=== PATIENT | male | born 1970 | race Caucasian/White ===

== ENCOUNTER 2016-05-14 09:58 | Inpatient (IN) | payer OTHER ==
[~2016-05-14] VITALS: Ht 198.1 cm; Wt 214.0 kg
[~2016-05-14 09:58] MED LIST: CARVEDILOL25 MG PO; CATAPRES0.3 MG PO; CITALOPRAM HBR20 MG PO; CLONIDINE HCL0.3 MG PO; COMBIVENT RESPIM4 GM IH; Catapres PO; DUONEB 2.5-0.5 M3 ML IH; DUONEB 2.5-0.5 M3 ML IPPB; DuoNeb IH; FUROSEMIDE20 MG PO; Glucophage PO; KLOR-CON M2020 MEQ PO; LASIX40 MG PO; LISINOPRIL2.5 MG PO; Lasix PO; Levaquin PO; Micro-K,K-Tab,K-Dur, PO; TRADJENTA5 MG PO; VERAPAMIL HCL120 MG PO; Zestril,Prinivil PO; predniSONE PO
[2016-05-14] MEDS ORDERED: VALIUM5 MG PO (14:25)
[2016-05-14] MEDS ORDERED: PERCOCET 5/31 TABLET PO (14:25)
[2016-05-14 16:36] LABS: ADD MIUA? NO; BILIRUBIN NEGATIVE; BLOOD NEGATIVE; COLOR YELLOW ((YELLOW)); GLUCOSE (STRIP) NEGATIVE; KETONES NEGATIVE; LEUKOCYTES NEGATIVE; NITRITE NEGATIVE; PH, URINE 6.5 (5-8); PROTEIN (STRIP) TRACE; SPECIFIC GRAVITY 1.023 (1.000-1.030); UCUL ADDED? NO; UROBILINOGEN 0.2 MG/DL (0.2-1.0)
[2016-05-14] MEDS ORDERED: LASIX40 MG PO (18:55)
[2016-05-14] MEDS ORDERED: LISINOPRIL2.5 MG PO (18:56)
[2016-05-14] MEDS ORDERED: COMBIVENT RESPIM4 GM IH (18:57)
[2016-05-14] MEDS ORDERED: BUSPAR10 MG PO (18:58)
[2016-05-14 20:32] LABS: HEMATOCRIT 48.9 % (38.0-50.0); MCH 24.4 PG (29.0-34.0); MCHC 31.5 G/DL (30.0-36.0); MCV 77.6 FL (86-99); MEAN PLAT.VOLUME 9.2 uM^3 (9.0-12.4); PLATELET COUNT 255 K/uL (156-360); RBC DIS.WIDTH-CV 18.6 % (11.8-14.6); RBC DIS.WIDTH-SD 48.8 % (39-53); WHITE BLOOD COUNT 15.9 K/uL (4.1-10.2)
[2016-05-14 20:40] LABS: CHLORIDE 100 mEq/L (99-109); POTASSIUM 4.6 mEq/L (3.7-5.4); SODIUM 138 mEq/L (136-147)
[2016-05-14 20:42] LABS: GLUCOSE 145 mg/dL (70-99)
[2016-05-14 20:43] LABS: ANION GAP 12 MEQ/L (2-14)
[2016-05-14 20:44] LABS: TOTAL BILIRUBIN 0.6 mg/dL (0.0-1.0)
[2016-05-14 20:45] LABS: ALKALINE PHOSPHATASE 93 IU/L (3-129)
[2016-05-14 20:46] LABS: GFR ESTIMATE (CALCULATED) 59 mL/min/
[2016-05-14 20:47] LABS: UREA NITROGEN (BUN) 24 mg/dL (9-23)
[2016-05-15] VITALS (7 sets, daily range): BP systolic 145–180; BP diastolic 64–87
[2016-05-15 00:53] LABS: POINT-OF-CARE METER ID UU14162513
[2016-05-15 08:15] LABS: POINT-OF-CARE METER ID UU13113700
[2016-05-15 13:08] LABS: POINT-OF-CARE METER ID UU13113700
[2016-05-15 17:01] LABS: POINT-OF-CARE METER ID UU14149397
[2016-05-15 22:13] LABS: POINT-OF-CARE METER ID UU14149397
[2016-05-16 03:47] VITALS: BP 152/68
[2016-05-16 04:45] LABS: HEMATOCRIT 45.4 % (38.0-50.0); MCH 24.6 PG (29.0-34.0); MCHC 31.1 G/DL (30.0-36.0); MCV 79.1 FL (86-99); MEAN PLAT.VOLUME 9.5 uM^3 (9.0-12.4); PLATELET COUNT 193 K/uL (156-360); RBC DIS.WIDTH-CV 19.1 % (11.8-14.6); RBC DIS.WIDTH-SD 51.7 % (39-53); RED BLOOD COUNT 5.74 M/uL (4.00-5.50); WHITE BLOOD COUNT 15.9 K/uL (4.1-10.2)
[2016-05-16 08:25] VITALS: BP 160/78
[2016-05-16 12:09] LABS: POINT-OF-CARE METER ID UU14149397
[2016-05-16 16:25] LABS: POINT-OF-CARE METER ID UU14149397
[2016-05-16 16:30] VITALS: BP 128/78
[2016-05-16 22:16] LABS: POINT-OF-CARE METER ID UU14149397
[2016-05-16 23:36] VITALS: BP 143/75
[2016-05-17 05:53] LABS: HEMATOCRIT 42.3 % (38.0-50.0); MCH 25.3 PG (29.0-34.0); MCV 81.7 FL (86-99); MEAN PLAT.VOLUME 10.3 uM^3 (9.0-12.4); PLATELET COUNT 195 K/uL (156-360); RBC DIS.WIDTH-CV 18.2 % (11.8-14.6); RBC DIS.WIDTH-SD 53.6 % (39-53); RED BLOOD COUNT 5.18 M/uL (4.00-5.50); WHITE BLOOD COUNT 17.3 K/uL (4.1-10.2)
[2016-05-17 06:16] LABS: ANION GAP 9 MEQ/L (2-14); CHLORIDE 98 MEQ/L (99-109); GFR ESTIMATE (CALCULATED) 50 mL/min/; GLUCOSE 158 mg/dL (70-99); POTASSIUM 4.2 MEQ/L (3.7-5.4); SAMPLE HEMOLYSIS CHECK 0; SAMPLE ICTERIC CHECK 0; SAMPLE LIPEMIA CHECK 0; SODIUM 137 MEQ/L (136-147); UREA NITROGEN (BUN) 27 mg/dL (9-23)
[2016-05-17 06:38] LABS: EOSINOPHIL (%) 0.3 % (0-5); EOSINOPHIL COUNT 0.1 K/uL (0-0.3); IMMATURE GRANULOCYTE (%) 0.3 % (0.0-0.7); IMMATURE GRANULOCYTE COUNT 0.1 K/uL; LYMPHOCYTE COUNT 1.6 K/uL (1.0-2.8); MONOCYTE (%) 10.8 % (3-12); MONOCYTE COUNT 1.9 K/uL (0-0.8); NEUTROPHIL (%) 79.5 % (45-76); NEUTROPHIL COUNT 13.7 K/uL (1.8-6.4)
[2016-05-17 07:37] LABS: HEMATOLOGY COMMENT 1 SMEAR COMPATIBLE; USER ID SDF
[2016-05-17 07:50] VITALS: BP 177/80
[2016-05-17 16:44] VITALS: BP 138/62
[2016-05-17 23:48] VITALS: BP 132/59
[2016-05-18 08:00] VITALS: BP 126/65
[2016-05-18 16:00] VITALS: BP 120/60
[2016-05-18 23:40] VITALS: BP 114/57
[2016-05-19 08:23] VITALS: BP 176/77
[2016-05-19 13:11] LABS: BASE EXCESS 2.2 mEq/L (-3 to +3); CARBOXY HGB 2.5 % (0-5); METHEMOGLOBIN 1.2 % (0-1.5); PO2 76 mm Hg (80-100); pH 7.37 (7.35-7.45)
[2016-05-19 13:12] LABS: BICARBONATE 28.3 mEq/L (22-26); COMMENTS - BLOOD GASES A+C+; DEVICE NC; O2 FLOW 2 L/MIN; PCO2 49 mm Hg (35-45); SITE LR; TOTAL RESP RATE 24 resp/min
[2016-05-19 13:28] LABS: ADD MIUA? YES; BILIRUBIN SMALL; BLOOD NEGATIVE; COLOR YELLOW ((YELLOW)); GLUCOSE (STRIP) NEGATIVE; KETONES NEGATIVE; LEUKOCYTES NEGATIVE; NITRITE NEGATIVE; PH, URINE 5.5 (5-8); PROTEIN (STRIP) TRACE; SPECIFIC GRAVITY 1.016 (1.000-1.030)
[2016-05-19 13:32] LABS: BACTERIA NONE SEEN; CRYSTALS NONE SEEN; EPITHELIAL CELLS 1+; SMALL ROUND CELL NONE SEEN; UCUL ADDED? NO; WHITE BLOOD CELLS 0-5 /HPF (0-5); YEAST-LIKE CELL NONE SEEN
[2016-05-19 13:42] LABS: AMORPHOUS PHOSPHATE CRYSTALS 2+; CASTS NONE SEEN /LPF; MUCUS NONE SEEN
[2016-05-19 17:03] LABS: HEMATOCRIT 39.7 % (38.0-50.0); MCH 24.7 PG (29.0-34.0); MCHC 30.7 G/DL (30.0-36.0); MCV 80.4 FL (86-99); RBC DIS.WIDTH-SD 52.3 % (39-53); RED BLOOD COUNT 4.94 M/uL (4.00-5.50); WHITE BLOOD COUNT 15.3 K/uL (4.1-10.2)
[2016-05-19 17:09] LABS: ANION GAP 13 MEQ/L (2-14); CHLORIDE 101 MEQ/L (99-109); GFR ESTIMATE (CALCULATED) 47 mL/min/; GLUCOSE 149 mg/dL (70-99); POTASSIUM 4.9 MEQ/L (3.7-5.4); SAMPLE HEMOLYSIS CHECK 0; SAMPLE ICTERIC CHECK 0; SAMPLE LIPEMIA CHECK 0; SODIUM 140 MEQ/L (136-147); UREA NITROGEN (BUN) 60 mg/dL (9-23)
[2016-05-19 17:11] LABS: EOSINOPHIL (%) 0.7 % (0-5); EOSINOPHIL COUNT 0.1 K/uL (0-0.3); IMMATURE GRANULOCYTE (%) 0.4 % (0.0-0.7); IMMATURE GRANULOCYTE COUNT 0.1 K/uL; LYMPHOCYTE COUNT 1.2 K/uL (1.0-2.8); MEAN PLAT.VOLUME 9.6 uM^3 (9.0-12.4); MONOCYTE (%) 9.4 % (3-12); MONOCYTE COUNT 1.4 K/uL (0-0.8); NEUTROPHIL (%) 81.5 % (45-76); NEUTROPHIL COUNT 12.4 K/uL (1.8-6.4)
[2016-05-19 17:21] LABS: PLATELET COUNT 294 K/uL (156-360)
[2016-05-19 17:22] LABS: ERTH.SED.RATE 127 MM/HR (0-15)
[2016-05-19 17:41] VITALS: BP 170/74
[2016-05-19 21:35] LABS: Insulin Like Growth Factor-1 233 ng/mL (52-328); Z-SCORE (MALE) 1.1 SD (-2.0 - +2.0)
[2016-05-19 21:50] LABS: POINT-OF-CARE METER ID UU13113717
[2016-05-19 23:56] VITALS: BP 135/62
[2016-05-20 05:11] LABS: CHLORIDE 103 mEq/L (99-109); POTASSIUM 4.9 mEq/L (3.7-5.4); SODIUM 140 mEq/L (136-147)
[2016-05-20 05:12] LABS: EOSINOPHIL (%) 0.1 % (0-5); HEMATOCRIT 41.9 % (38.0-50.0); IMMATURE GRANULOCYTE (%) 0.2 % (0.0-0.7); IMMATURE GRANULOCYTE COUNT 0.3 K/uL; LYMPHOCYTE COUNT 0.6 K/uL (1.0-2.8); MCH 24.5 PG (29.0-34.0); MCV 79.1 FL (86-99); MEAN PLAT.VOLUME 9.3 uM^3 (9.0-12.4); MONOCYTE (%) 1.7 % (3-12); MONOCYTE COUNT 0.2 K/uL (0-0.8); NEUTROPHIL (%) 92.8 % (45-76); NEUTROPHIL COUNT 11.7 K/uL (1.8-6.4); PLATELET COUNT 325 K/uL (156-360); RBC DIS.WIDTH-CV 18.2 % (11.8-14.6); RBC DIS.WIDTH-SD 51.1 % (39-53); WHITE BLOOD COUNT 12.6 K/uL (4.1-10.2)
[2016-05-20 05:13] LABS: GLUCOSE 216 mg/dL (70-99)
[2016-05-20 05:14] LABS: ANION GAP 14 MEQ/L (2-14)
[2016-05-20 05:17] LABS: GFR ESTIMATE (CALCULATED) 47 mL/min/; UREA NITROGEN (BUN) 59 mg/dL (9-23)
[2016-05-20 06:39] LABS: POINT-OF-CARE METER ID UU13113717
[2016-05-20 08:30] VITALS: BP 170/75; BP 176/78
[2016-05-20 11:30] VITALS: BP 179/78
[2016-05-20 16:30] VITALS: BP 160/98
[2016-05-21] VITALS (7 sets, daily range): BP systolic 102–164; BP diastolic 56–86
[2016-05-21 07:12] LABS: POINT-OF-CARE METER ID UU13113717
[2016-05-21 07:21] LABS: EOSINOPHIL (%) 0 % (0-5); HEMATOCRIT 43.5 % (38.0-50.0); IMMATURE GRANULOCYTE (%) 0.5 % (0.0-0.7); MCH 25.3 PG (29.0-34.0); MCHC 31.3 G/DL (30.0-36.0); MCV 80.9 FL (86-99); MEAN PLAT.VOLUME 10.1 uM^3 (9.0-12.4); MONOCYTE (%) 4.8 % (3-12); MONOCYTE COUNT 0.4 K/uL (0-0.8); NEUTROPHIL (%) 83.8 % (45-76); NEUTROPHIL COUNT 7.4 K/uL (1.8-6.4); PLATELET COUNT 353 K/uL (156-360); RBC DIS.WIDTH-CV 17.8 % (11.8-14.6); RBC DIS.WIDTH-SD 51.8 % (39-53); RED BLOOD COUNT 5.38 M/uL (4.00-5.50)
[2016-05-21 07:23] LABS: WHITE BLOOD COUNT 8.8 K/uL (4.1-10.2)
[2016-05-21 09:08] LABS: ANION GAP 13 MEQ/L (2-14); CHLORIDE 106 MEQ/L (99-109); GFR ESTIMATE (CALCULATED) 59 mL/min/; GLUCOSE 205 mg/dL (70-99); POTASSIUM 5.3 MEQ/L (3.7-5.4); SAMPLE HEMOLYSIS CHECK 2; SAMPLE ICTERIC CHECK 0; SAMPLE LIPEMIA CHECK 0; SODIUM 144 MEQ/L (136-147); UREA NITROGEN (BUN) 60 mg/dL (9-23)
[2016-05-21 12:37] LABS: POINT-OF-CARE METER ID UU13113717
[2016-05-21 17:13] LABS: POINT-OF-CARE METER ID UU13113717
[2016-05-21 21:34] LABS: POINT-OF-CARE METER ID UU14149397
[2016-05-22 00:37] VITALS: BP 172/90
[2016-05-22 04:00] VITALS: BP 176/80
[2016-05-22 06:27] LABS: HEMATOCRIT 46.2 % (38.0-50.0); MCH 25.5 PG (29.0-34.0); MCHC 30.7 G/DL (30.0-36.0); MCV 82.9 FL (86-99); MEAN PLAT.VOLUME 9.9 uM^3 (9.0-12.4); PLATELET COUNT 411 K/uL (156-360); RBC DIS.WIDTH-CV 18.1 % (11.8-14.6); RED BLOOD COUNT 5.57 M/uL (4.00-5.50); WHITE BLOOD COUNT 9.4 K/uL (4.1-10.2)
[2016-05-22 06:40] LABS: EOSINOPHIL (%) 0 % (0-5); IMMATURE GRANULOCYTE (%) 0.6 % (0.0-0.7); IMMATURE GRANULOCYTE COUNT 0.1 K/uL; LYMPHOCYTE COUNT 1.3 K/uL (1.0-2.8); MONOCYTE (%) 9.8 % (3-12); MONOCYTE COUNT 0.9 K/uL (0-0.8); NEUTROPHIL (%) 75.4 % (45-76); NEUTROPHIL COUNT 7.1 K/uL (1.8-6.4)
[2016-05-22 06:47] LABS: ANION GAP 11 MEQ/L (2-14); CHLORIDE 110 MEQ/L (99-109); GFR ESTIMATE (CALCULATED) 59 mL/min/; GLUCOSE 177 mg/dL (70-99); POTASSIUM 5.3 MEQ/L (3.7-5.4); SAMPLE HEMOLYSIS CHECK 0; SAMPLE ICTERIC CHECK 0; SAMPLE LIPEMIA CHECK 0; SODIUM 148 MEQ/L (136-147); UREA NITROGEN (BUN) 64 mg/dL (9-23)
[2016-05-22 06:55] LABS: POINT-OF-CARE METER ID UU13113717
[2016-05-22 08:09] VITALS: BP 188/92
[2016-05-22 12:01] LABS: POINT-OF-CARE METER ID UU13113717
[2016-05-22 16:02] VITALS: BP 172/92
[2016-05-22 16:33] LABS: POINT-OF-CARE METER ID UU13113717
[2016-05-22 19:50] VITALS: BP 140/78
[2016-05-22 21:56] LABS: POINT-OF-CARE METER ID UU13113717
[2016-05-22 23:29] VITALS: BP 171/90
[2016-05-23 06:21] LABS: ANION GAP 11 MEQ/L (2-14); CHLORIDE 102 MEQ/L (99-109); GFR ESTIMATE (CALCULATED) 50 mL/min/; GLUCOSE 168 mg/dL (70-99); SAMPLE HEMOLYSIS CHECK 0; SAMPLE ICTERIC CHECK 0; SAMPLE LIPEMIA CHECK 0; UREA NITROGEN (BUN) 66 mg/dL (9-23)
[2016-05-23 06:23] LABS: SODIUM 140 MEQ/L (136-147)
[2016-05-23 06:52] LABS: EOSINOPHIL (%) 0.6 % (0-5); EOSINOPHIL COUNT 0.1 K/uL (0-0.3); HEMATOCRIT 47.7 % (38.0-50.0); IMMATURE GRANULOCYTE (%) 0.5 % (0.0-0.7); IMMATURE GRANULOCYTE COUNT 0.1 K/uL; LYMPHOCYTE COUNT 2.8 K/uL (1.0-2.8); MCH 24.2 PG (29.0-34.0); MCHC 29.8 G/DL (30.0-36.0); MCV 81.4 FL (86-99); MEAN PLAT.VOLUME 9.6 uM^3 (9.0-12.4); MONOCYTE (%) 5.4 % (3-12); MONOCYTE COUNT 0.8 K/uL (0-0.8); NEUTROPHIL (%) 73.5 % (45-76); NEUTROPHIL COUNT 10.3 K/uL (1.8-6.4); PLATELET COUNT 397 K/uL (156-360); RBC DIS.WIDTH-CV 17.7 % (11.8-14.6); RBC DIS.WIDTH-SD 52.3 % (39-53); RED BLOOD COUNT 5.86 M/uL (4.00-5.50)
[2016-05-23 07:07] LABS: POINT-OF-CARE METER ID UU13113717
[2016-05-23 08:01] VITALS: BP 184/99
[2016-05-23 12:01] LABS: POINT-OF-CARE METER ID UU13113717
[2016-05-23 17:02] VITALS: BP 143/68
[2016-05-23 22:15] LABS: POINT-OF-CARE METER ID UU14149397
[2016-05-24 00:40] VITALS: BP 140/80
[2016-05-24 04:23] LABS: HEMATOCRIT 48.6 % (38.0-50.0); MCH 24.5 PG (29.0-34.0); MCHC 31.3 G/DL (30.0-36.0); MCV 78.4 FL (86-99); MEAN PLAT.VOLUME 9.4 uM^3 (9.0-12.4); PLATELET COUNT 441 K/uL (156-360); RBC DIS.WIDTH-CV 18.8 % (11.8-14.6); RBC DIS.WIDTH-SD 50.9 % (39-53); WHITE BLOOD COUNT 15.8 K/uL (4.1-10.2)
[2016-05-24 04:32] LABS: CHLORIDE 104 mEq/L (99-109); POTASSIUM 4.5 mEq/L (3.7-5.4); SODIUM 139 mEq/L (136-147)
[2016-05-24 04:34] LABS: GLUCOSE 177 mg/dL (70-99)
[2016-05-24 04:35] LABS: ANION GAP 12 MEQ/L (2-14)
[2016-05-24 04:38] LABS: GFR ESTIMATE (CALCULATED) 54 mL/min/; UREA NITROGEN (BUN) 60 mg/dL (9-23)
[2016-05-24 05:20] LABS: ANISOCYTOSIS 1+; EOSINOPHIL (%) 1.4 % (0-5); EOSINOPHIL COUNT 0.2 K/uL (0-0.3); HEMATOLOGY COMMENT 1 REV; IMMATURE GRANULOCYTE (%) 0.4 % (0.0-0.7); IMMATURE GRANULOCYTE COUNT 0.7 K/uL; LYMPHOCYTE COUNT 2.4 K/uL (1.0-2.8); MACROCYTES 1+; MICROCYTOSIS FEW; MONOCYTE (%) 4.8 % (3-12); MONOCYTE COUNT 0.8 K/uL (0-0.8); NEUTROPHIL (%) 77.9 % (45-76); NEUTROPHIL COUNT 12.3 K/uL (1.8-6.4); OVALOCYTES 1+; PLAT.SUFFICIENCY ADEQUATE; SPHEROCYTES FEW
[2016-05-24 05:34] LABS: C DIFF TOXIN NEGATIVE (NEGATIVE)
[2016-05-24 05:46] LABS: PROBE CHECK PASS; SPECIMEN PROCESSING CONTROL PASS
[2016-05-24 08:23] VITALS: BP 170/92
[2016-05-24 12:35] LABS: POINT-OF-CARE METER ID UU14149397
[2016-05-24 16:30] VITALS: BP 139/82
[2016-05-24 16:46] LABS: POINT-OF-CARE METER ID UU14149397
[2016-05-24 21:56] LABS: POINT-OF-CARE METER ID UU14149397
[2016-05-24 23:37] VITALS: BP 120/60
[2016-05-25 05:48] LABS: HEMATOCRIT 48.1 % (38.0-50.0); MCH 25.5 PG (29.0-34.0); MCHC 31.4 G/DL (30.0-36.0); MCV 81.4 FL (86-99); MEAN PLAT.VOLUME 10.4 uM^3 (9.0-12.4); PLATELET COUNT 376 K/uL (156-360); RBC DIS.WIDTH-SD 51.9 % (39-53); RED BLOOD COUNT 5.91 M/uL (4.00-5.50); WHITE BLOOD COUNT 15.5 K/uL (4.1-10.2)
[2016-05-25 05:49] LABS: ANION GAP 10 MEQ/L (2-14); CHLORIDE 101 MEQ/L (99-109); GFR ESTIMATE (CALCULATED) 54 mL/min/; GLUCOSE 153 mg/dL (70-99); SAMPLE HEMOLYSIS CHECK 0; SAMPLE ICTERIC CHECK 0; SAMPLE LIPEMIA CHECK 0; SODIUM 138 MEQ/L (136-147); UREA NITROGEN (BUN) 47 mg/dL (9-23)
[2016-05-25 06:19] LABS: EOSINOPHIL (%) 1.5 % (0-5); EOSINOPHIL COUNT 0.2 K/uL (0-0.3); IMMATURE GRANULOCYTE (%) 0.7 % (0.0-0.7); IMMATURE GRANULOCYTE COUNT 0.1 K/uL; LYMPHOCYTE COUNT 2.6 K/uL (1.0-2.8); MONOCYTE (%) 4.2 % (3-12); MONOCYTE COUNT 0.7 K/uL (0-0.8); NEUTROPHIL (%) 76.5 % (45-76); NEUTROPHIL COUNT 11.8 K/uL (1.8-6.4)
[2016-05-25 06:52] LABS: POINT-OF-CARE METER ID UU14149397
[2016-05-25 07:30] VITALS: BP 146/99
[2016-05-25 11:42] LABS: POINT-OF-CARE METER ID UU13113717
[2016-05-25 16:08] VITALS: BP 184/94
[2016-05-25 20:36] VITALS: BP 173/97
[2016-05-25 21:28] VITALS: BP 164/82
[2016-05-25 21:45] LABS: POINT-OF-CARE USER ID STWHLR41
[2016-05-26 00:09] VITALS: BP 162/78
[2016-05-26 03:26] LABS: POINT-OF-CARE METER ID UU14149397
[2016-05-26 05:33] LABS: HEMATOCRIT 48.5 % (38.0-50.0); MCH 25.5 PG (29.0-34.0); MCHC 31.3 G/DL (30.0-36.0); MCV 81.2 FL (86-99); MEAN PLAT.VOLUME 10.3 uM^3 (9.0-12.4); PLATELET COUNT 351 K/uL (156-360); RBC DIS.WIDTH-CV 18.4 % (11.8-14.6); RBC DIS.WIDTH-SD 51.7 % (39-53); RED BLOOD COUNT 5.97 M/uL (4.00-5.50)
[2016-05-26 05:56] LABS: EOSINOPHIL (%) 1.6 % (0-5); EOSINOPHIL COUNT 0.3 K/uL (0-0.3); IMMATURE GRANULOCYTE COUNT 0.2 K/uL; LYMPHOCYTE COUNT 2.6 K/uL (1.0-2.8); MONOCYTE (%) 4.2 % (3-12); MONOCYTE COUNT 0.7 K/uL (0-0.8); NEUTROPHIL (%) 76.7 % (45-76); NEUTROPHIL COUNT 12.3 K/uL (1.8-6.4)
[2016-05-26 06:20] LABS: ANION GAP 11 MEQ/L (2-14); CHLORIDE 101 MEQ/L (99-109); GFR ESTIMATE (CALCULATED) > 59 mL/min/; GLUCOSE 158 mg/dL (70-99); POTASSIUM 3.7 MEQ/L (3.7-5.4); SAMPLE HEMOLYSIS CHECK 0; SAMPLE ICTERIC CHECK 0; SAMPLE LIPEMIA CHECK 0; SODIUM 139 MEQ/L (136-147); UREA NITROGEN (BUN) 42 mg/dL (9-23)
[2016-05-26 06:58] LABS: POINT-OF-CARE METER ID UU14149397
[2016-05-26 07:30] VITALS: BP 157/88
[2016-05-26 11:27] LABS: POINT-OF-CARE METER ID UU14149397
[2016-05-26] MEDS ORDERED: HYDROCODON-ACE1 EAC7 PO (12:23)
[2016-05-26] MEDS ORDERED: LIDOCAINE700 MG TD (12:23)
[2016-05-26] MEDS ORDERED: DULOXETINE HCL30 MG PO (12:23)
[2016-05-26] MEDS ORDERED: LEVEMIR100 UNIT/2 SC (12:23)
[2016-05-26 15:28] VITALS: BP 140/78
[2016-05-26 16:24] LABS: POINT-OF-CARE METER ID UU13113717
== END 2016-05-26 18:50 | DRG 552 ==
LOC: EME 09:58 → 5WEST 19:52 → EDOF 19:52 → 5WEST 05-15 00:29 → 3EAST 05-15 10:45 → 5WEST 05-15 10:45 → 3EAST 05-15 15:36
PROVIDERS: Emergency Medicine; Hospitalist; Internal Medicine; Student in an Organized Health Care Education/Training Program
PROC: 5A09357 Assistance with Respiratory Ventilation, Less than 24 Consecutive Hours, Continuous Positive Airway Pressure (ICD-10-PCS; principal; 2016-05-19)
DX: M54.16 Radiculopathy, lumbar region (principal); Z68.45 Body mass index [BMI] 70 or greater, adult; E66.2 Morbid (severe) obesity with alveolar hypoventilation; N17.9 Acute kidney failure, unspecified; F33.9 Major depressive disorder, recurrent, unspecified; I50.42 Chronic combined systolic (congestive) and diastolic (congestive) heart failure; F05 Delirium due to known physiological condition; J96.11 Chronic respiratory failure with hypoxia; J96.12 Chronic respiratory failure with hypercapnia; I12.9 Hypertensive chronic kidney disease with stage 1 through stage 4 chronic kidney disease, or unspecified chronic kidney disease; Z91.19 Patient's noncompliance with other medical treatment and regimen; I27.2 Other secondary pulmonary hypertension; N18.3 Chronic kidney disease, stage 3 (moderate); G89.29 Other chronic pain; E11.22 Type 2 diabetes mellitus with diabetic chronic kidney disease; I87.2 Venous insufficiency (chronic) (peripheral); M54.41 Lumbago with sciatica, right side; E78.5 Hyperlipidemia, unspecified; R32 Unspecified urinary incontinence; R15.9 Full incontinence of feces; E65 Localized adiposity; R44.1 Visual hallucinations; F41.9 Anxiety disorder, unspecified; R26.2 Difficulty in walking, not elsewhere classified; Z79.84 Long term (current) use of oral hypoglycemic drugs; Z82.49 Family history of ischemic heart disease and other diseases of the circulatory system
CPT/HCPCS: 36600; 71010; 72100; 73564; 78315; 80048; 80053; 81003; 82140; 82803; 82948; 84305 90; 84443; 85025; 85027; 85651; 86140; 87040; 87493; 94640; 94640 76; 94799; 99202; 99281; 99285; A9503; G0008; G0378; G8978 GP CM; G8979 CJ; G8980 GP CI; G8987 GO CN; G8988 GO CJ; G8989 GO CH; J0696; J1170; J1644; J1815; J1940; J2930; J3010; J3370; J7030; J7040; J7050

== ENCOUNTER 2016-09-27 12:34 | Inpatient (IN) | payer OTHER ==
[~2016-09-27] VITALS: Ht 195.6 cm; Wt 114.0 kg
[~2016-09-27 12:34] MED LIST changes: +BUSPAR10 MG PO; +DULOXETINE HCL30 MG PO; +HYDROCODON-ACE1 EAC7 PO; +LEVEMIR100 UNIT/2 SC; +LIDOCAINE700 MG TD; +PERCOCET 5/31 TABLET PO; +VALIUM5 MG PO
[2016-09-27 14:23] LABS: MCHC 31.6 G/DL (30.0-36.0); MCV 79.2 FL (86-99); MEAN PLAT.VOLUME 9.5 uM^3 (9.0-12.4); PLATELET COUNT 216 K/uL (156-360); RBC DIS.WIDTH-CV 19.3 % (11.8-14.6); RBC DIS.WIDTH-SD 54.8 % (39-53); WHITE BLOOD COUNT 28.5 K/uL (4.1-10.2)
[2016-09-27 14:31] LABS: CHLORIDE 104 mEq/L (99-109); POTASSIUM 3.7 mEq/L (3.7-5.4)
[2016-09-27 14:32] LABS: SODIUM 135 mEq/L (136-147)
[2016-09-27 14:33] LABS: GLUCOSE 139 mg/dL (70-99)
[2016-09-27 14:35] LABS: ANION GAP 11 MEQ/L (2-14)
[2016-09-27 14:37] LABS: GFR ESTIMATE (CALCULATED) 39 mL/min/
[2016-09-27 14:38] LABS: UREA NITROGEN (BUN) 31 mg/dL (9-23)
[2016-09-27 15:52] LABS: ABS NEUTROPHIL COUNT 25.8; BAND NEUTROPHILS 6.1 % (0-8.0); BASOPHILS 0.9 %; EOSINOPHIL ABS CT 0; INSTRUMENT ABS NEUTROPHIL CT 23.7 K/uL; LYMPHOCYTES 6.1 % (15.0-45.0); SEG.NEUTROPHILS 84.3 % (46.0-76.0)
[2016-09-27] MEDS ORDERED: CYMBALTA60 MG PO (16:45)
[2016-09-27] MEDS ORDERED: CELEXA40 MG PO (16:46)
[2016-09-27] MEDS ORDERED: ZYLOPRIM100 MG PO (16:47)
[2016-09-27] MEDS ORDERED: CARAFATE1 GM PO (16:47)
[2016-09-27] MEDS ORDERED: FLEXERIL5 MG PO (16:47)
[2016-09-27] MEDS ORDERED: TYLENOL ARTHRI650 MG PO (16:49)
[2016-09-27] MEDS ORDERED: OMEGA 3-6-9 11200 MG PO (16:50)
[2016-09-27] MEDS ORDERED: LO-DOSE ASPIRIN81 M2 PO (16:50)
[2016-09-27 20:10] LABS: POINT-OF-CARE METER ID UU13113675
[2016-09-27 21:51] LABS: ANISOCYTOSIS 1+; MICROCYTOSIS 1+; PLAT.SUFFICIENCY ADEQUATE
[2016-09-27 23:19] VITALS: BP 131/58
[2016-09-28 03:02] VITALS: BP 131/59
[2016-09-28 05:19] LABS: HEMATOCRIT 35.7 % (38.0-50.0); MCH 24.7 PG (29.0-34.0); MCHC 30.5 G/DL (30.0-36.0); MCV 80.8 FL (86-99); MEAN PLAT.VOLUME 9.9 uM^3 (9.0-12.4); PLATELET COUNT 168 K/uL (156-360); RBC DIS.WIDTH-CV 19.4 % (11.8-14.6); RED BLOOD COUNT 4.42 M/uL (4.00-5.50)
[2016-09-28 05:20] LABS: WHITE BLOOD COUNT 18.9 K/uL (4.1-10.2)
[2016-09-28 05:29] LABS: CHLORIDE 107 mEq/L (99-109); MAGNESIUM 1.5 mg/dL (1.3-2.7); POTASSIUM 3.7 mEq/L (3.7-5.4); SODIUM 139 mEq/L (136-147)
[2016-09-28 05:31] LABS: GLUCOSE 107 mg/dL (70-99)
[2016-09-28 05:33] LABS: ANION GAP 11 MEQ/L (2-14); TOTAL BILIRUBIN 0.9 mg/dL (0.0-1.0)
[2016-09-28 05:35] LABS: ALKALINE PHOSPHATASE 99 IU/L (3-129); GFR ESTIMATE (CALCULATED) 37 mL/min/
[2016-09-28 05:36] LABS: UREA NITROGEN (BUN) 33 mg/dL (9-23)
[2016-09-28 06:02] LABS: EOSINOPHIL (%) 0.7 % (0-5); EOSINOPHIL COUNT 0.1 K/uL (0-0.3); IMMATURE GRANULOCYTE (%) 2.3 % (0.0-0.7); IMMATURE GRANULOCYTE COUNT 0.4 K/uL; INSTRUMENT ABS NEUTROPHIL CT 15.2 K/uL; LYMPHOCYTE COUNT 1.7 K/uL (1.0-2.8); MONOCYTE (%) 7.2 % (3-12); MONOCYTE COUNT 1.4 K/uL (0-0.8); NEUTROPHIL (%) 80.5 % (45-76); NEUTROPHIL COUNT 15.2 K/uL (1.8-6.4); PLAT.SUFFICIENCY ADEQUATE
[2016-09-28 07:42] LABS: POINT-OF-CARE METER ID UU13113781
[2016-09-28 08:02] VITALS: BP 121/58
[2016-09-28 12:11] VITALS: BP 132/62
[2016-09-28 16:20] VITALS: BP 129/59
[2016-09-28 19:40] VITALS: BP 111/53
[2016-09-28 20:37] LABS: POINT-OF-CARE METER ID UU13113781
[2016-09-29 04:13] VITALS: BP 127/58
[2016-09-29 07:11] LABS: EOSINOPHIL (%) 1.5 % (0-5); EOSINOPHIL COUNT 0.2 K/uL (0-0.3); HEMATOCRIT 35.5 % (38.0-50.0); IMMATURE GRANULOCYTE (%) 1.1 % (0.0-0.7); IMMATURE GRANULOCYTE COUNT 0.2 K/uL; INSTRUMENT ABS NEUTROPHIL CT 12.3 K/uL; LYMPHOCYTE COUNT 1.5 K/uL (1.0-2.8); MCH 24.5 PG (29.0-34.0); MCHC 30.1 G/DL (30.0-36.0); MCV 81.4 FL (86-99); MEAN PLAT.VOLUME 9.8 uM^3 (9.0-12.4); MONOCYTE (%) 5.7 % (3-12); MONOCYTE COUNT 0.9 K/uL (0-0.8); NEUTROPHIL (%) 81.4 % (45-76); NEUTROPHIL COUNT 12.3 K/uL (1.8-6.4); PLATELET COUNT 216 K/uL (156-360); RBC DIS.WIDTH-CV 19.5 % (11.8-14.6); RBC DIS.WIDTH-SD 58.4 % (39-53); RED BLOOD COUNT 4.36 M/uL (4.00-5.50); WHITE BLOOD COUNT 15.1 K/uL (4.1-10.2)
[2016-09-29 07:57] LABS: POINT-OF-CARE METER ID UU13113781
[2016-09-29 08:06] LABS: ANION GAP 10 MEQ/L (2-14); CHLORIDE 112 MEQ/L (99-109); GFR ESTIMATE (CALCULATED) 59 mL/min/; GLUCOSE 94 mg/dL (70-99); POTASSIUM 3.9 MEQ/L (3.7-5.4); SAMPLE HEMOLYSIS CHECK 0; SAMPLE ICTERIC CHECK 0; SAMPLE LIPEMIA CHECK 0; SODIUM 144 MEQ/L (136-147); UREA NITROGEN (BUN) 23 mg/dL (9-23)
[2016-09-29 08:33] VITALS: BP 139/71
[2016-09-29 11:20] VITALS: BP 136/81
[2016-09-29 15:30] VITALS: BP 141/75
[2016-09-29 20:00] VITALS: BP 127/62
[2016-09-29 21:00] LABS: POINT-OF-CARE METER ID UU14174216
[2016-09-29 23:32] VITALS: BP 134/65
[2016-09-30] VITALS (7 sets, daily range): BP systolic 129–171; BP diastolic 60–82
[2016-09-30 05:26] LABS: EOSINOPHIL COUNT 0.3 K/uL (0-0.3); HEMATOCRIT 36.5 % (38.0-50.0); IMMATURE GRANULOCYTE COUNT 0.1 K/uL; INSTRUMENT ABS NEUTROPHIL CT 9.6 K/uL; LYMPHOCYTE COUNT 1.7 K/uL (1.0-2.8); MCH 24.4 PG (29.0-34.0); MCHC 29.9 G/DL (30.0-36.0); MCV 81.8 FL (86-99); MEAN PLAT.VOLUME 9.2 uM^3 (9.0-12.4); MONOCYTE (%) 7.3 % (3-12); MONOCYTE COUNT 0.9 K/uL (0-0.8); NEUTROPHIL (%) 76.3 % (45-76); NEUTROPHIL COUNT 9.6 K/uL (1.8-6.4); PLATELET COUNT 253 K/uL (156-360); RBC DIS.WIDTH-CV 19.3 % (11.8-14.6); RED BLOOD COUNT 4.46 M/uL (4.00-5.50); WHITE BLOOD COUNT 12.5 K/uL (4.1-10.2)
[2016-09-30 05:46] LABS: ANION GAP 9 MEQ/L (2-14); CHLORIDE 110 MEQ/L (99-109); GFR ESTIMATE (CALCULATED) > 59 mL/min/; GLUCOSE 102 mg/dL (70-99); POTASSIUM 4.1 MEQ/L (3.7-5.4); SAMPLE HEMOLYSIS CHECK 0; SAMPLE ICTERIC CHECK 0; SAMPLE LIPEMIA CHECK 0; SODIUM 142 MEQ/L (136-147); UREA NITROGEN (BUN) 16 mg/dL (9-23)
[2016-09-30 11:43] LABS: POINT-OF-CARE METER ID UU14174216
[2016-09-30 23:26] LABS: POINT-OF-CARE METER ID UU14188577
[2016-10-01 00:37] VITALS: BP 142/67
[2016-10-01 04:21] VITALS: BP 135/60
[2016-10-01 06:25] LABS: POINT-OF-CARE METER ID UU14149397
[2016-10-01 07:02] LABS: HEMATOCRIT 33.8 % (38.0-50.0); MCH 24.9 PG (29.0-34.0); MCHC 30.8 G/DL (30.0-36.0); MCV 81.1 FL (86-99); MEAN PLAT.VOLUME 9.2 uM^3 (9.0-12.4); PLATELET COUNT 237 K/uL (156-360); RBC DIS.WIDTH-CV 18.9 % (11.8-14.6); RED BLOOD COUNT 4.17 M/uL (4.00-5.50)
[2016-10-01 07:29] LABS: ANION GAP 9 MEQ/L (2-14); CHLORIDE 108 MEQ/L (99-109); GFR ESTIMATE (CALCULATED) > 59 mL/min/; GLUCOSE 107 mg/dL (70-99); POTASSIUM 4.1 MEQ/L (3.7-5.4); SAMPLE HEMOLYSIS CHECK 0; SAMPLE ICTERIC CHECK 0; SAMPLE LIPEMIA CHECK 0; SODIUM 139 MEQ/L (136-147); UREA NITROGEN (BUN) 14 mg/dL (9-23)
[2016-10-01 09:34] VITALS: BP 163/79
[2016-10-01 12:22] LABS: POINT-OF-CARE METER ID UU14149397
[2016-10-01 16:54] VITALS: BP 129/70
[2016-10-01 16:56] LABS: POINT-OF-CARE METER ID UU14188577
[2016-10-01 20:09] VITALS: BP 152/71
[2016-10-01 21:53] LABS: POINT-OF-CARE METER ID UU14149397
[2016-10-01 23:57] VITALS: BP 167/76
[2016-10-02 04:29] VITALS: BP 147/69
[2016-10-02 06:31] LABS: POINT-OF-CARE METER ID UU14188577
[2016-10-02 08:03] VITALS: BP 132/68
[2016-10-02 11:46] VITALS: BP 117/55
[2016-10-02 11:51] LABS: POINT-OF-CARE METER ID UU14188577
[2016-10-02 15:48] VITALS: BP 123/58
[2016-10-02 19:59] VITALS: BP 189/79
[2016-10-02 21:28] LABS: POINT-OF-CARE METER ID UU14149397
[2016-10-02 23:53] VITALS: BP 134/73
[2016-10-03 03:41] VITALS: BP 134/61
[2016-10-03 06:26] LABS: POINT-OF-CARE METER ID UU14149397
[2016-10-03 08:43] VITALS: BP 133/65
[2016-10-03 11:26] VITALS: BP 161/67
[2016-10-03 11:52] LABS: POINT-OF-CARE METER ID UU14149397
[2016-10-03] MEDS ORDERED: HYDROCODON-ACE1 EAC7 PO (15:25)
[2016-10-03] MEDS ORDERED: AMOX TR-K CLV1 EAC4 PO (15:25)
[2016-10-03] MEDS ORDERED: Zeasorb Antifungal T TP (15:25)
[2016-10-03 16:31] VITALS: BP 150/79
[2016-10-03 16:51] LABS: POINT-OF-CARE METER ID UU14188577
== END 2016-10-03 19:35 | disposition home health service (06) | DRG 853 ==
LOC: EME 12:34 → EDOF 17:57 → 4EAST 17:57 → EDOF 18:12 → 4EAST 22:46 → 3EAST 09-30 22:19
PROVIDERS: Emergency Medicine; Hospitalist; Internal Medicine; Internal Medicine Critical Care Medicine; Surgery
PROC: 02HV32Z Insertion of Monitoring Device into Superior Vena Cava, Percutaneous Approach (ICD-10-PCS; principal; 2016-09-27)
PROC: 4A143B0 Monitoring of Venous Pressure, Central, Percutaneous Approach (ICD-10-PCS; principal; 2016-09-27)
PROC: 0JB80ZZ Excision of Abdomen Subcutaneous Tissue and Fascia, Open Approach (ICD-10-PCS; principal; 2016-09-27)
DX: A41.9 Sepsis, unspecified organism (principal); R65.21 Severe sepsis with septic shock; L02.211 Cutaneous abscess of abdominal wall; L03.311 Cellulitis of abdominal wall; M72.6 Necrotizing fasciitis; B95.0 Streptococcus, group A, as the cause of diseases classified elsewhere; N17.9 Acute kidney failure, unspecified; I13.0 Hypertensive heart and chronic kidney disease with heart failure and stage 1 through stage 4 chronic kidney disease, or unspecified chronic kidney disease; N18.3 Chronic kidney disease, stage 3 (moderate); E11.22 Type 2 diabetes mellitus with diabetic chronic kidney disease; I50.9 Heart failure, unspecified; E66.01 Morbid (severe) obesity due to excess calories; Z68.44 Body mass index [BMI] 60.0-69.9, adult; E78.5 Hyperlipidemia, unspecified; G47.33 Obstructive sleep apnea (adult) (pediatric); G89.29 Other chronic pain; M54.9 Dorsalgia, unspecified; F32.9 Major depressive disorder, single episode, unspecified; F41.9 Anxiety disorder, unspecified
CPT/HCPCS: 71010; 74176; 80048; 80053; 82948; 83605; 83735; 84100; 85025; 85027; 87040; 87070; 87075; 87077; 87186; 87205; 88305; 93970; 93971; 94640; 94640 76; 94799; 97530 GO; 97530 GP; 99202; 99281; 99285; A6260; J1650; J1815; J2250; J2540; J2543; J3010; J3370; J7030; J7040; J7050; J7120; J7512; S0020

== ENCOUNTER 2017-08-25 16:59 | Emergency (ER) | payer OTHER ==
[~2017-08-25] VITALS: Ht 195.6 cm; Wt 228.1 kg
[~2017-08-25 16:59] MED LIST changes: +AMOX TR-K CLV1 EAC4 PO; +CARAFATE1 GM PO; +CELEXA40 MG PO; +CYMBALTA60 MG PO; +FLEXERIL5 MG PO; +LO-DOSE ASPIRIN81 M2 PO; +OMEGA 3-6-9 11200 MG PO; +TYLENOL ARTHRI650 MG PO; +ZYLOPRIM100 MG PO; +Zeasorb Antifungal T TP
[2017-08-25 17:32] LABS: HEMATOCRIT 49.3 % (38.0-50.0); HEMOGLOBIN 15.1 G/DL (12.5-16.6); MCH 25.1 PG (29.0-34.0); MCHC 30.6 G/DL (30.0-36.0); PLATELET COUNT 179 K/uL (156-360); RBC DIS.WIDTH-CV 18.4 % (11.8-14.6); RBC DIS.WIDTH-SD 50.3 % (39-53); RED BLOOD COUNT 6.01 M/uL (4.00-5.50); WHITE BLOOD COUNT 12.2 K/uL (4.1-10.2)
[2017-08-25 17:43] LABS: CHLORIDE 102 mEq/L (99-109); POTASSIUM 5.1 mEq/L (3.7-5.4); SODIUM 142 mEq/L (136-147)
[2017-08-25 17:45] LABS: GLUCOSE 140 mg/dL (70-99)
[2017-08-25 17:48] LABS: CREATININE 1.6 mg/dL (0.6-1.3); GFR ESTIMATE (CALCULATED) 50 mL/min/ (58.99-99999)
[2017-08-25 17:49] LABS: UREA NITROGEN (BUN) 28 mg/dL (9-23)
[2017-08-25 22:32] LABS: TROP-I INTERPRETATION NEGATIVE; TROPONIN-I < 0.01 ng/mL (0.0-0.30)
[2017-08-26 00:04] LABS: TROP-I INTERPRETATION NEGATIVE; TROPONIN-I < 0.01 ng/mL (0.0-0.30)
[2017-08-26] MEDS ORDERED: PREDNISONE20 MG PO (00:16)
[2017-08-26] MEDS ORDERED: VENTOLIN HFA18 GM IH (00:16)
[2017-08-26 00:47] VITALS: BP 195/85
== END 2017-08-26 00:48 | disposition home or self-care (01) ==
LOC: EME 16:59 → RME 16:59
PROVIDERS: Physician Assistant Medical
DX: R06.02 Shortness of breath (principal); R05 Cough; I10 Essential (primary) hypertension; E11.9 Type 2 diabetes mellitus without complications; I50.9 Heart failure, unspecified; E66.01 Morbid (severe) obesity due to excess calories; Z68.43 Body mass index [BMI] 50.0-59.9, adult; F41.9 Anxiety disorder, unspecified; F32.9 Major depressive disorder, single episode, unspecified; Z79.82 Long term (current) use of aspirin; Z79.84 Long term (current) use of oral hypoglycemic drugs
CPT/HCPCS: 71046; 80048; 84484; 85027; 93005; 94640; 99281; 99284

== ENCOUNTER 2017-08-28 07:41 | Inpatient (IN) | payer OTHER ==
[~2017-08-28] VITALS: Ht 195.6 cm; Wt 224.0 kg
[~2017-08-28 07:41] MED LIST changes: +PREDNISONE20 MG PO; +VENTOLIN HFA18 GM IH
[2017-08-28 08:56] LABS: BASE EXCESS 5.9 mEq/L (-3 to +3); METHEMOGLOBIN 0.5 % (0-1.5); PO2 66 mm Hg (80-100); pH 7.34 (7.35-7.45)
[2017-08-28 08:58] LABS: COMMENTS - BLOOD GASES A+C+; DEVICE NC; O2 FLOW 5 L/MIN; PCO2 63 mm Hg (35-45); SITE RR
[2017-08-28 09:08] LABS: BASOPHIL (%) 0.3 % (0-1); EOSINOPHIL (%) 1.2 % (0-5); EOSINOPHIL COUNT 0.2 K/uL (0-0.3); HEMOGLOBIN 14.6 G/DL (12.5-16.6); IMMATURE GRANULOCYTE (%) 0.7 % (0.0-0.7); LYMPHOCYTE COUNT 1.6 K/uL (1.0-2.8); MCH 24.9 PG (29.0-34.0); MCHC 30.4 G/DL (30.0-36.0); MCV 81.9 FL (86-99); MONOCYTE (%) 8.9 % (3-12); MONOCYTE COUNT 1.1 K/uL (0-0.8); NEUTROPHIL (%) 75.9 % (45-76); NEUTROPHIL COUNT 9.4 K/uL (1.8-6.4); PLATELET COUNT 169 K/uL (156-360); RBC DIS.WIDTH-CV 18.2 % (11.8-14.6); RBC DIS.WIDTH-SD 50.8 % (39-53); RED BLOOD COUNT 5.86 M/uL (4.00-5.50); WHITE BLOOD COUNT 12.4 K/uL (4.1-10.2)
[2017-08-28 09:20] LABS: ALBUMIN 4.1 g/dL (3.2-4.8); CHLORIDE 102 mEq/L (99-109); POTASSIUM 4.4 mEq/L (3.7-5.4); SODIUM 140 mEq/L (136-147)
[2017-08-28 09:21] LABS: MAGNESIUM 2.3 mg/dL (1.3-2.7)
[2017-08-28 09:22] LABS: GLUCOSE 137 mg/dL (70-99); TOTAL PROTEIN 7.3 g/dL (6.4-8.3)
[2017-08-28 09:24] LABS: TOTAL BILIRUBIN 0.5 mg/dL (0.0-1.0)
[2017-08-28 09:26] LABS: ALKALINE PHOSPHATASE 101 IU/L (3-129); CREATININE 1.8 mg/dL (0.6-1.3); GFR ESTIMATE (CALCULATED) 44 mL/min/ (58.99-99999)
[2017-08-28 09:27] LABS: UREA NITROGEN (BUN) 34 mg/dL (9-23)
[2017-08-28 09:28] LABS: AST (GOT) 20 IU/L (2-34)
[2017-08-28 09:29] LABS: ALT (GPT) 19 IU/L (3-49); TROP-I INTERPRETATION NEGATIVE; TROPONIN-I 0.01 ng/mL (0.0-0.30)
[2017-08-28 11:16] LABS: INTER. NORMALIZED RATIO 1.1
[2017-08-28 11:17] LABS: BASE EXCESS 4.6 mEq/L (-3 to +3); BICARBONATE 33.2 mEq/L (22-26); CARBOXY HGB 0.9 % (0-5); METHEMOGLOBIN 0.3 % (0-1.5); PCO2 66 mm Hg (35-45); PO2 71 mm Hg (80-100); pH 7.31 (7.35-7.45)
[2017-08-28 11:18] LABS: COMMENTS - BLOOD GASES A+C+; DEVICE NCHH; FI02 50 %; O2 FLOW 40 L/MIN; SITE RR
[2017-08-28 11:19] LABS: PTT 33.1 SEC (25-37)
[2017-08-28] MEDS ORDERED: BUSPAR10 MG PO (11:27)
[2017-08-28] MEDS ORDERED: NIACIN500 M4 PO (11:28)
[2017-08-28 15:45] VITALS: BP 183/93
[2017-08-28 19:44] VITALS: BP 141/76
[2017-08-28 22:55] LABS: APPEARANCE CLEAR ((CLEAR)); BILIRUBIN NEGATIVE; BLOOD NEGATIVE; COLOR YELLOW ((YELLOW)); GLUCOSE (STRIP) NEGATIVE; KETONES NEGATIVE; LEUKOCYTES NEGATIVE; NITRITE NEGATIVE; PROTEIN (STRIP) 100; SPECIFIC GRAVITY 1.013 (1.000-1.030); UROBILINOGEN 0.2 MG/DL (0.2-1.0)
[2017-08-28 22:57] LABS: BACTERIA RARE /HPF; EPITHELIAL CELLS RARE /HPF; HYALINE CASTS 0-5 /LPF; MUCUS TRACE /LPF; RED BLOOD CELLS 0-5 /HPF (0-5); UCUL ADDED? NO; WHITE BLOOD CELLS 0-5 /HPF (0-5)
[2017-08-29] VITALS (7 sets, daily range): BP systolic 135–187; BP diastolic 66–102
[2017-08-29 05:26] LABS: BASOPHIL (%) 0.2 % (0-1); EOSINOPHIL (%) 0 % (0-5); HEMATOCRIT 52.5 % (38.0-50.0); HEMOGLOBIN 15.1 G/DL (12.5-16.6); IMMATURE GRANULOCYTE (%) 1.9 % (0.0-0.7); LYMPHOCYTE (%) 13.6 % (15-42); LYMPHOCYTE COUNT 0.9 K/uL (1.0-2.8); MCHC 28.8 G/DL (30.0-36.0); MCV 83.5 FL (86-99); MONOCYTE (%) 3.4 % (3-12); MONOCYTE COUNT 0.2 K/uL (0-0.8); NEUTROPHIL (%) 80.9 % (45-76); NEUTROPHIL COUNT 5.2 K/uL (1.8-6.4); PLATELET COUNT 201 K/uL (156-360); RBC DIS.WIDTH-CV 18.4 % (11.8-14.6); RBC DIS.WIDTH-SD 52.2 % (39-53); RED BLOOD COUNT 6.29 M/uL (4.00-5.50); WHITE BLOOD COUNT 6.4 K/uL (4.1-10.2)
[2017-08-29 05:57] LABS: CHLORIDE 100 MEQ/L (99-109); CREATININE 1.4 MG/DL (0.6-1.3); GFR ESTIMATE (CALCULATED) 59 mL/min/ (58.99-99999); GLUCOSE 168 mg/dL (70-99); SODIUM 142 MEQ/L (136-147); UREA NITROGEN (BUN) 37 mg/dL (9-23)
[2017-08-29 05:58] LABS: POTASSIUM 5.5 MEQ/L (3.7-5.4)
[2017-08-30 04:40] VITALS: BP 167/81
[2017-08-30 09:01] VITALS: BP 146/81
[2017-08-30 12:23] VITALS: BP 140/86
[2017-08-30 12:32] LABS: CHLORIDE 99 MEQ/L (99-109); CREATININE 1.5 MG/DL (0.6-1.3); GFR ESTIMATE (CALCULATED) 54 mL/min/ (58.99-99999); GLUCOSE 195 mg/dL (70-99); POTASSIUM 5.2 MEQ/L (3.7-5.4); SODIUM 139 MEQ/L (136-147); UREA NITROGEN (BUN) 53 mg/dL (9-23)
[2017-08-30 15:59] VITALS: BP 161/83
[2017-08-31] VITALS: BP 153/79
[2017-08-31 04:23] VITALS: BP 167/77
[2017-08-31 06:19] LABS: HEMATOCRIT 51.5 % (38.0-50.0); HEMOGLOBIN 15.2 G/DL (12.5-16.6); MCH 24.3 PG (29.0-34.0); MCHC 29.5 G/DL (30.0-36.0); MCV 82.4 FL (86-99); PLATELET COUNT 233 K/uL (156-360); RBC DIS.WIDTH-CV 17.6 % (11.8-14.6); RBC DIS.WIDTH-SD 50.3 % (39-53); RED BLOOD COUNT 6.25 M/uL (4.00-5.50); WHITE BLOOD COUNT 11.1 K/uL (4.1-10.2)
[2017-08-31 06:43] LABS: CHLORIDE 100 MEQ/L (99-109); CREATININE 1.6 MG/DL (0.6-1.3); GFR ESTIMATE (CALCULATED) 50 mL/min/ (58.99-99999); GLUCOSE 172 mg/dL (70-99); POTASSIUM 5.2 MEQ/L (3.7-5.4); SODIUM 140 MEQ/L (136-147); UREA NITROGEN (BUN) 57 mg/dL (9-23)
[2017-08-31 08:00] VITALS: BP 164/90
[2017-08-31 11:33] VITALS: BP 142/71
[2017-08-31 16:21] VITALS: BP 159/77
[2017-08-31 23:42] VITALS: BP 147/75
[2017-09-01 04:10] VITALS: BP 161/95
[2017-09-01 07:36] VITALS: BP 165/93
[2017-09-01 11:27] VITALS: BP 164/94
[2017-09-01] MEDS ORDERED: DULERA 100 MCG/13 GM IH (13:15)
[2017-09-01] MEDS ORDERED: MUCINEX600 MG PO (13:16)
[2017-09-01] MEDS ORDERED: PREDNISONE10 MG PO (13:18)
[2017-09-01] MEDS ORDERED: CEFTIN500 MG PO (13:24)
[2017-09-01 16:25] VITALS: BP 154/85
== END 2017-09-01 17:10 | disposition home health service (06) | DRG 193 ==
LOC: EME → EDBD 07:41 → 4EAST 12:43 → 5EAST 12:43 → EDOF 12:43 → ENRESERV 12:45 → 4EAST 15:42 → ENRESERV 08-30 → 4EAST 08-30 10:09 → ENRESERV 08-30 16:57 → 5EAST 08-30 18:40
PROVIDERS: Emergency Medicine; Internal Medicine; Physician Assistant
PROC: 5A09357 Assistance with Respiratory Ventilation, Less than 24 Consecutive Hours, Continuous Positive Airway Pressure (ICD-10-PCS; principal; 2017-08-29)
DX: J18.9 Pneumonia, unspecified organism (principal); J96.21 Acute and chronic respiratory failure with hypoxia; J96.22 Acute and chronic respiratory failure with hypercapnia; E66.2 Morbid (severe) obesity with alveolar hypoventilation; Z68.43 Body mass index [BMI] 50.0-59.9, adult; I13.0 Hypertensive heart and chronic kidney disease with heart failure and stage 1 through stage 4 chronic kidney disease, or unspecified chronic kidney disease; I50.9 Heart failure, unspecified; E11.22 Type 2 diabetes mellitus with diabetic chronic kidney disease; N18.3 Chronic kidney disease, stage 3 (moderate); E87.5 Hyperkalemia; E11.65 Type 2 diabetes mellitus with hyperglycemia; Z91.19 Patient's noncompliance with other medical treatment and regimen; E78.5 Hyperlipidemia, unspecified; M54.30 Sciatica, unspecified side; G89.29 Other chronic pain; D72.829 Elevated white blood cell count, unspecified; F32.9 Major depressive disorder, single episode, unspecified; F41.9 Anxiety disorder, unspecified; Z71.3 Dietary counseling and surveillance; Z79.82 Long term (current) use of aspirin; Z79.84 Long term (current) use of oral hypoglycemic drugs; Z79.891 Long term (current) use of opiate analgesic; Z83.3 Family history of diabetes mellitus; Z82.49 Family history of ischemic heart disease and other diseases of the circulatory system
CPT/HCPCS: 36600; 71045; 71046; 78580; 80048; 80053; 81003; 82803; 82948; 83036; 83605; 83735; 83880; 84132 91; 84484; 85025; 85027; 85379; 85610; 85730; 87040; 87070; 87205; 87449; 93005; 94640; 94640 76; 94660; 94760; 94799; 99202; 99281; 99285; A9540; J0360; J0456; J0696; J1644; J1815; J2543; J2920; J2930; J3370; J7644